=== PATIENT | female | born 1970 | race African-American/Black ===

== ENCOUNTER 2022-10-03 09:53 | Emergency (ER) | payer BC ==
[~2022-10-03] VITALS: Ht 175.3 cm; Wt 150.6 kg
[2022-10-03] MEDS ORDERED: BACTRIM DS TAB1 EACH PO (10:18)
[2022-10-03] MEDS ORDERED: MUPIROCIN22 GM TOP (10:19)
== END 2022-10-03 10:25 | disposition home or self-care (01) ==
LOC: ER 10:02
DX: L02.818 Cutaneous abscess of other sites (principal); I10 Essential (primary) hypertension
CPT/HCPCS: 99282